=== PATIENT | female | born 1990 | race Two or more races ===

== ENCOUNTER 2024-07-28 10:20 | Emergency (ER) | payer BC ==
[~2024-07-28] VITALS: Ht 165.1 cm; Wt 81.6 kg
[2024-07-28] MEDS ORDERED: LAMOTRIGINE200 MG PO (10:59)
[2024-07-28 11:01] VITALS: BP 114/76; O2SAT 100
[2024-07-28] MEDS ORDERED: OxyCODONE HCL/APAP UD (PERCOCET) PO STA (13:36)
[2024-07-28] MEDS ORDERED: NAPROXEN500 MG PO (16:11)
[2024-07-28] MEDS ORDERED: ZANAFLEX4 MG PO (16:11)
== END 2024-07-28 17:05 | disposition home or self-care (01) ==
LOC: ER 10:23
DX: S39.82XA Other specified injuries of lower back, initial encounter (principal); W05.1XXA Fall from non-moving nonmotorized scooter, initial encounter; Y93.I9 Activity, other involving external motion; Y92.89 Other specified places as the place of occurrence of the external cause; Y99.8 Other external cause status; M54.9 Dorsalgia, unspecified